=== PATIENT | female | born 1970 | race Two or more races ===

== ENCOUNTER → 2018-08-26 | Outpatient (CLI) | payer BC | END | disposition home or self-care (01) | LOC: LAB 12:00 | PROVIDERS: ATTEND Internal Medicine | DX: R73.03 Prediabetes (principal); E78.5 Hyperlipidemia, unspecified; E03.9 Hypothyroidism, unspecified; M19.041 Primary osteoarthritis, right hand | CPT/HCPCS: 73140; 80053; 80061; 82306; 83036; 84436; 84443; 85025 ==